=== PATIENT | female | born 1965 | race Caucasian/White ===

== ENCOUNTER 2021-01-20 17:02 | Emergency (ER) | payer SELFPAY ==
[2021-01-20 17:14] VITALS: BP 125/73; PULSE 71; RESP 16; TEMP 36; O2SAT 96
--- NOTE | 2021-01-20 18:29 | ED.SKABFB ---
HPI - Skin/Abscess/Foreign Bdy General Chief complaint: Urogenital-Female Stated complaint: Blisters on Anus Time Seen by Provider: 01/20/21 18:18 Source: patient and RN notes reviewed Mode of arrival: ambulatory Limitations: no limitations History of Present Illness HPI narrative: Patient presents today complaining of 6-day history of some hemorrhoids. She has been using some Preparation H and coconut oil on her hemorrhoids and states they had resolved but the skin around her anus has become very irritated and blistered and has been worsening and very painful. She has been using hydrocortisone cream, lidocaine cream, and Advil without much relief. MD complaint: rash Related Data Home Medications Medication Instructions Recorded Confirmed escitalopram oxalate 20 mg PO DAILY 01/20/21 01/20/21 propranolol 40 mg PO DAILY 01/20/21 01/20/21 Allergies Allergy/AdvReac Type Severity Reaction Status Date / Time codeine Allergy Other Verified 01/20/21 18:12 meperidine [From Demerol] Allergy Other Verified 01/20/21 18:12 Review of Systems Review of Systems: CONSTITUTIONAL: Denies body aches, fever, chills, or sweats. EYES: Denies visual changes, redness, or discharge. ENT: Denies rhinorrhea, congestion, sore throat, or otalgia. CARDIOVASCULAR: Denies chest pain, palpitations, or edema. RESPIRATORY: Denies cough or dyspnea. GASTROINTESTINAL: Denies abdominal pain, nausea, vomiting, or diarrhea. GENITOURINARY: Denies dysuria or hematuria. SKIN: + Rash, blisters MUSCULOSKELETAL: Denies back pain, joint pain, or myalgia. NEUROLOGIC: Denies headache, numbness, tingling, or weakness. PSYCH: Denies depression or anxiety. PMFSH Comments At time of signature, I have reviewed and agree with nursing past medical, surgical, social and family history unless otherwise noted. Please see nursing chart for further information. There is no relevant family history pertinent to the presenting complaint Exam Narrative: GENERAL: Well-appearing, well-nourished, and in no acute distress. HEAD: Normocephalic, atraumatic. EYES: EOMI. No redness or drainage. Conjunctivae normal. ENT: Mucous membranes pink and moist. NECK: Normal AROM. CHEST: No respiratory distress. EXTREMITIES: Normal range of motion. No edema. SKIN: Warm, dry. Capillary refill normal. Normal skin turgor. Anus appears normal. Skin of the buttocks surrounding the anus bilaterally is erythematous and macerated. NEURO: No focal deficits. Alert and oriented x3. Gait steady. PSYCH: Normal affect. No signs of depression or anxiety. Course Vital Signs Vital signs: Vital Signs Temperature 96.8 F L 01/20/21 17:14 Pulse Rate 71 01/20/21 17:14 Respiratory Rate 16 01/20/21 17:14 Blood Pressure 125/73 01/20/21 17:14 Pulse Oximetry 96 01/20/21 17:14 Temperature 96.8 F L 01/20/21 17:14 Pulse Rate 71 01/20/21 17:14 Respiratory Rate 16 01/20/21 17:14 Blood Pressure 125/73 01/20/21 17:14 Pulse Oximetry 96 01/20/21 17:14 Reviewed. Pt has been instructed to follow up with her PCP regarding her elevated blood pressure today. MDM - Skin/Abscess/Foreign Bdy Differential Diagnosis Differential diagnosis: Likely abscess of skin or subcutaneous tissue, dermatophytosis, allergic reaction to drug, cellulitis and contact dermatitis Critical Care Time Critical Care Time Critical Care Time: No Discharge Plan Discharge Clinical Impression: Impetigo Contact dermatitis Qualifiers: Contact dermatitis type: unspecified Contact dermatitis trigger: unspecified trigger Qualified Code(s): L25.9 - Unspecified contact dermatitis, unspecified cause Patient Disposition: Home, Self-Care Condition: Stable Instructions: Antibiotic Form, Impetigo (DC), Contact Dermatitis (DC) Additional Instructions: Please use the nystatin and mupirocin ointment mixed together and applied 3 times daily. Other than this mixture, do not apply anything else to your ski
== END 2021-01-20 18:45 | disposition home or self-care (01) ==
PROVIDERS: Emergency Provider Nurse Practitioner; PCP Nurse Practitioner Adult Health
DX: L01.00 Impetigo, unspecified (principal); L25.9 Unspecified contact dermatitis, unspecified cause; F41.9 Anxiety disorder, unspecified
CPT/HCPCS: 99203; G0463